=== PATIENT | female | born 1990 | race Caucasian/White ===

== ENCOUNTER 2016-06-21 23:59 | Emergency (ER) | payer OTHER ==
[2016-06-22 00:09] VITALS: BMI 22.3
[2016-06-22] MEDS ORDERED: SODIUM CHLORIDE 0.9% 1000 ML INFUS.BAG IV ONE (01:41)
[2016-06-22 02:14] LABS: BASOPHIL 0.3 % (0-2.0); EOSINOPHIL 2.3 % (0-4.5); MCH 30.4 pg (25.7-33.7); MCHC 32.8 g/dl (32.0-36.0); MEAN CELL VOLUME 92.8 fl (80-96); MEAN PLT VOLUME 7.3 fl (7.5-11.1); NEUTROPHILS 45.4 % (42.8-82.8); PLATELET COUNT 236 K/MM3 (134-434); RDW 13.8 % (11.6-15.6); WHITE BLOOD COUNT 8.2 K/mm3 (4.0-10.0)
[2016-06-22 02:36] LABS: ALBUMIN 3.6 g/dl (3.4-5.0); ANION GAP 6 (8-16); BILIRUBIN,TOTAL 0.2 mg/dL (0.2-1.0); CALCIUM 8.3 mg/dL (8.5-10.1); CO2 30 mmol/L (21-32); CREATININE 0.8 mg/dL (0.55-1.02); GLUCOSE,RANDOM 98 mg/dL (74-106); SGOT/AST 14 U/L (15-37); SGPT/ALT 16 U/L (12-78); TOT PROT 6.4 g/dl (6.4-8.2)
[2016-06-22 02:44] LABS: ALK PHOS 52 U/L (45-117); THYROID STIMULATING HORMONE 0.49 uIU/ml (0.358-3.74)
[2016-06-22 02:51] LABS: HIV 1 & 2 AB NEGATIVE; HIV 1 AGp24 NEGATIVE
--- NOTE | 2016-06-22 02:57 | PDOC ---
History of Present Illness - General Chief Complaint: Diarrhea Stated Complaint: DIZZINESS, WEAKNESS Time Seen by Provider: 06/22/16 01:18 History Source: Patient Exam Limitations: No Limitations - History of Present Illness Initial Comments: 06/22/16 02:38 Patient is a 26-year-old female with past history of chlamydial infection here with multiple complaints of not feeling well x 4 months. Symptoms include feeling weak, dizzy, decreased appetite, abd bloating, sorethorat, rectal bleeding, menorrhagia, HARPER, photophobia, diarrhea, 40 lbs weight loss, nausea, no vomiting. She is concern that she may have lupus for HIV and was suppose to go for the workup but did not due to time. She is requesting testing including HIV. PMD: Debbi Morales PMHX: as above PSocHx: (+)5-6 cig/day, etoh daily, no drugs Pfamhx: lupus aunt ALL: NKDA GENERAL/CONSTITUTIONAL: (+) fever or chills. (+) weakness. (+) weight change.] HEAD, EYES, EARS, NOSE AND THROAT: [No change in vision. No ear pain or discharge. No sore throat.] CARDIOVASCULAR: [No chest pain or shortness of breath.] RESPIRATORY: [No cough, wheezing, or hemoptysis.] GASTROINTESTINAL: (+) nausea, vomiting, diarrhea or constipation. No rectal bleeding.] GENITOURINARY: (+) dysuria, frequency, or change in urination.] MUSCULOSKELETAL: [No joint or muscle swelling or pain. No neck or back pain.] SKIN AND BREASTS: [No rash or easy bruising.] NEUROLOGIC: (+) headache, (-) vertigo, loss of consciousness, or loss of sensation.] PSYCHIATRIC: [No depression or anxiety.] ENDOCRINE: [No increased thirst. No abnormal weight change.] HEMATOLOGIC/LYMPHATIC: [No anemia, easy bleeding, or history of blood clots.] ALLERGIC/IMMUNOLOGIC: [No hives or skin allergy. No latex allergy.] GENERAL: [The patient is awake, alert, and fully oriented, in mild distress, crying] HEAD: [Normal with no signs of trauma.] EYES: [Pupils equal, round and reactive to light, extraocular movements intact, sclera anicteric, conjunctiva pallor, dark igiugig around the eyes ENT: [Ears normal, nares patent, oropharynx clear without exudates. Moist mucous membranes.] NECK: [Normal range of motion, supple without lymphadenopathy, JVD, or masses.] LUNGS: [Breath sounds equal, clear to auscultation bilaterally. No wheezes, and no crackles.] HEART: [Regular rate and rhythm, normal S1 and S2 without murmur, rub.] ABDOMEN: [Soft, (+) tender generalized tenderness, normoactive bowel sounds. No guarding, no rebound. No masses.] EXTREMITIES: [Normal range of motion, no edema. No clubbing or cyanosis. No cords, erythema, or tenderness.] NEUROLOGICAL: [Cranial nerves II through XII grossly intact. Normal speech, normal gait.] PSYCH: [Normal mood, normal affect.] SKIN: [Warm, Dry, normal turgor, no rashes or lesions noted.] Past History - Past Medical History Allergies/Adverse Reactions: Allergies Allergy/AdvReac Type Severity Reaction Status Date / Time No Known Drug Allergies Allergy Verified 06/22/16 00:09 Home Medications: Ambulatory Orders NK [No Known Home Medication] 06/22/16 Asthma: Yes Cancer: No Cardiac Disorders: No Diabetes: No HTN: No Seizures: No Thyroid Disease: No - Reproductive History (#): 0 Para: 0 Cervical CA: No Dysfunctional Uterine Bleeding: No Ectopic : No Endometrial CA: No Polycystic Ovaries: No Therapeutic (s) & number: No Tubal Ligation: No - Immunization History Immunization Up to Date: Yes - Psycho/Social/Smoking Cessation Hx Anxiety: No Suicidal Ideation: No Smoking Status: Yes Smoking History: Current every day smoker Have you smoked in the past 12 months: Yes Number of Cigarettes Smoked Daily: 8 Information on smoking cessation initiated: No 'Breaking Loose' booklet given: 12/05/14 Hx Alcohol Use: No Drug/Substance Use Hx: Yes Substance Use Type: Cocaine Hx Substance Use Treatment: Yes ([facility]) *Physical Exam - Vital Signs Last Vital Signs Temp Pulse Resp BP Pulse Ox 98.5 F 100 H 18 103/68 98 06/22/16 00:03 06/22/16 00:03 06/22/16 00:03 06/22/16 00:03 06/22/16 00:03 ED Treatment Course - LABORATORY CBC & Chemistry Diagram: 06/22/16 02:10 06/22/16 02:10 - ADDITIONAL ORDERS Additional order review: 06/22/16 02:10 RBC 4.17 MCV 92.8 MCHC 32.8 RDW 13.8 MPV 7.3 L D Neutrophils % 45.4 Lymphocytes % 42.2 H D Monocytes % 9.8 Eosinophils % 2.3 Basophils % 0.3 - Medications Given in the ED: ED Medications Discontinued Medications Generic Name Dose Route Start Last Admin Trade Name Luz PRN Reason Stop Dose Admin Sodium Chloride 1,000 ml 06/22/16 01:41 06/22/16 02:11 Normal Saline - IV 06/22/16 01:42 1,000 ml ONCE ONE Administration Medical Decision Making - Medical Decision Making 06/22/16 04:33 Patient is a 26-year-old female with past history of chlamydial infection here with multiple complaints of not feeling well x 4 months. Symptoms are nonspecific but will get labs and give IVF hydration labs reviewed no acute finding GC chlamydia and mono screen are pending and a send out. I discussed the physical exam findings, ancillary test results and final diagnoses with the patient. I answered all of the patient's questions. The patient was satisfied with the care received and felt comfortable with the discharge plan and treatment plan. The Patient agrees to follow up with the primary care physician within 24-72 hours. *DC/Admit/Observation/Transfer Diagnosis at time of Disposition: Fatigue Qualifiers: Fatigue type: unspecified Qualified Code(s): R53.83 - Other fatigue - Discharge Dispostion Disposition: HOME Condition at time of disposition: Stable - Referrals Referrals: Debbi Mathew NP [Primary Care Provider] - - Patient Instructions Printed Discharge Instructions: DI for Fatigue Additional Instructions: Your Discharge Instructions: You must call primary care physician within 24 hours to arrange follow-up. Return to the Emergency Department with any new, persistent or worsening symptoms, for fever, chills, SOB, dizziness or any other concerning changes that may occur.
[2016-06-22 04:05] LABS: URINE APPEARANCE CLEAR; URINE BILIRUBIN NEGATIVE (NEGATIVE); URINE BLOOD NEGATIVE (NEGATIVE); URINE COLOR LTYELLOW; URINE GLUCOSE (UA) NEGATIVE (NEGATIVE); URINE KETONE NEGATIVE (NEGATIVE); URINE LEUK ESTERASE NEGATIVE (NEGATIVE); URINE NITRITE NEGATIVE (NEGATIVE); URINE PROTEIN NEGATIVE (NEGATIVE); URINE UROBILINOGEN NEGATIVE E.U./dl (0.2-1.0)
[2016-06-22 05:44] VITALS: BP 106/56; PULSE 74; TEMP 98.1
== END 2016-06-22 05:45 | disposition home or self-care (01) ==
LOC: JER 23:59
DX: R53.83 Other fatigue (principal); R11.2 Nausea with vomiting, unspecified; R63.4 Abnormal weight loss; Z68.22 Body mass index [BMI] 22.0-22.9, adult; F17.210 Nicotine dependence, cigarettes, uncomplicated
CPT/HCPCS: 36415; 80053; 81003; 82272; 84443; 85025; 86308; 87045; 87046; 87324; 87389; 87449; 87491; 87591; 99283-25

== ENCOUNTER 2016-09-03 11:16 | Inpatient (IN) | payer OTHER ==
[2016-09-03 11:20] VITALS: BMI 20.9
--- NOTE | 2016-09-03 12:13 | PDOC ---
History of Present Illness - History of Present Illness Initial Comments: 09/03/16 15:30 The patient is a 26 year old female, with no significant past medical history of depression, anxiety, bipolar disorder, suicidal ideation (last attempt on ), and polysubstance abuse, who presents to the emergency department with suicidal ideations, weight-loss, weakness, dizziness, unexplained bruising, and abdominal pain today. The patient admits to being seen at [facility] 3 days ago for attempt of suicide. She states she snorted cocaine the day of her recent suicide attempt, as well as, ingesting half of a bottle of anxiety medication she had left over. She denies any illicit drug use since. She reports she cut her left arm and woke up in the ER with her hands tied to the bed. The patient states she does not have a plan today, but feels like committing suicide. She reports she has been unable to eat because of diffuse abdominal pain and nausea/vomiting. She reports her vomit feels like acid. She denies hematemesis. The patient states she attempts suicide at least twice a year since she was a young girl. She states she lost her job a year ago and has not been able to get work. She also states she just recently gave custody of her son to her parents. She states she feels like everything is wrong with her and feels very depressed. She states she has been to [facility] numerous times for her depression/anxiety and denies being seen by psychiatrist at the facility. She states she has had her own psychiatrist since she was young , however, reports she has not followed up in at least 3 or 4 months because I do not feel I need medication. She states her last PCP visit was 5 months ago[address] She reports Dr. Mathew is new to her after he usual PCP, Dr. Cedeno, retired. She denies chest pain, shortness of breath, headache. She denies fever, diarrhea and constipation. She denies dysuria, frequency, urgency and hematuria. Allergies: NKDA Social history: Admits to use of cocaine, pcp, marijuana, K2, PCP - Dr. Debbi Mathew <Vanesa Hurtado - Last Filed: 09/03/16 15:30> <Derrick Rodrigez - Last Filed: 09/05/16 07:41> - General Chief Complaint: Suicidal Stated Complaint: WEIGHT LOSS Time Seen by Provider: 09/03/16 11:30 Past History <Vanesa Hurtado - Last Filed: 09/03/16 15:30> - Past Medical History Asthma: Yes Cancer: No Cardiac Disorders: No Diabetes: No HTN: No Psychiatric Problems: Yes (DEPRESSION, ANXIETY, BIPOLAR) Seizures: No Thyroid Disease: No - Reproductive History (#): 0 Para: 0 Cervical CA: No Dysfunctional Uterine Bleeding: No Ectopic : No Endometrial CA: No Polycystic Ovaries: No Therapeutic (s) & number: No Tubal Ligation: No - Immunization History Immunization Up to Date: Yes - Psycho/Social/Smoking Cessation Hx Anxiety: Yes Suicidal Ideation: Yes Smoking Status: Yes Smoking History: Current every day smoker Have you smoked in the past 12 months: Yes Number of Cigarettes Smoked Daily: 20 Information on smoking cessation initiated: No 'Breaking Loose' booklet given: 12/05/14 Hx Alcohol Use: No Drug/Substance Use Hx: No Substance Use Type: None Hx Substance Use Treatment: Yes ([facility] 2013) <Derrick Rodrigez - Last Filed: 09/05/16 07:41> - Past Medical History Allergies/Adverse Reactions: Allergies Allergy/AdvReac Type Severity Reaction Status Date / Time No Known Drug Allergies Allergy Verified 09/03/16 11:20 Home Medications: Ambulatory Orders NK [No Known Home Medication] 06/22/16 Review of Systems - Review of Systems Able to Perform ROS?: Yes Comments:: 09/03/16 15:31 CONSTITUTIONAL: + Malaise, Loss of Appetite No reported: Fever, Chills, Diaphoresis, HEENT: No reported: Rhinorrhea, Nasal Congestion, Throat Pain, Throat Swelling, Difficulty Swallowing, Mouth Swelling, Ear Pain, Eye Pain, Visual Changes CARDIOVASCULAR: No reported: Chest Pain, Syncope, Palpitations, Irregular Heart Rate, Lightheadedness, Peripheral Edema RESPIRATORY: No reported: Cough, Shortness of Breath, SOB with Exertion, Orthopnea, Wheezing , Stridor, Hemoptysis GASTROINTESTINAL: +Nausea, No reported: Abdominal pain, Abdominal Distension, Vomiting, Diarrhea, Constipation, Melena, Hematochezia GENITOURINARY: No reported: Dysuria, Frequency, Urgency, Hesitancy, Flank Pain, Genital Pain MUSCULOSKELETAL: No reported: Myalgia, Arthralgia, Joint Swelling, Back pain, Neck Pain SKIN: No reported: Rash, Itching, Pallor HEMEATOLOGIC/IMMUNOLOGIC: No reported: Easy Bleeding, Easy Bruising, Lymphadenopathy, Frequent infections ENDOCRINE: No reported: Unexplained Weight Gain, Unexplained Weight Loss, Heat Intolerance , Cold Intolerance NEUROLOGIC: No reported: Headache, Focal Weakness, Paresthesias, Vertigo, Lightheadedness, Unsteady Gait, Seizure, Mental Status Changes, Incontinence PSYCHIATRIC: No reported: Anxiety, Depression <Vanesa Hurtado - Last Filed: 09/03/16 15:30> *Physical Exam - Vital Signs Last Vital Signs Temp Pulse Resp BP Pulse Ox 97.7 F 75 20 136/89 100 09/03/16 11:16 09/03/16 11:16 09/03/16 11:16 09/03/16 11:16 09/03/16 11:39 - Physical Exam Comments: 09/03/16 15:31 GENERAL: The patient is moderate distress, tearful at bedside. Awake, alert, and fully oriented, Nontoxic. HEAD: Normocephalic, atraumatic. EYES: extraocular movements intact, sclera anicteric, conjunctiva clear. ENT: Normal voice, Moist mucous membranes. NECK: Normal range of motion, supple LUNGS: Breath sounds equal, clear to auscultation bilaterally. No wheezes, no rhonchi, no rales. HEART: Regular rate and rhythm, without murmur, rub or gallop. ABDOMEN: Soft, nontender, normoactive bowel sounds. No guarding, no rebound.No CVA tenderness EXTREMITIES: Normal range of motion, no edema. No clubbing or cyanosis. No cords, erythema, or tenderness. NEUROLOGICAL: No facial assymetry, Normal speech, PSYCH: Normal mood, tearful affect SKIN: (+) multiple , nonindurated, ecchymosis of different stages to her bilateral lower extremities Warm, Dry, normal turgor, multiple superficial abrasions on L wrist without bleeding <Vanesa Hurtado - Last Filed: 09/03/16 15:30> - Vital Signs Last Vital Signs Temp Pulse Resp BP Pulse Ox 97.7 F 75 20 136/89 100 09/03/16 11:16 09/03/16 11:16 09/03/16 11:16 09/03/16 11:16 09/03/16 11:16 <Derrick Rodrigez - Last Filed: 09/05/16 07:41> Heart Score/ECG Review - ECG Impressions Comment:: 09/03/16 14:24 Twelve-lead EKG was performed and reviewed by me. There is normal sinus rhythm with a rate of 57 The axis is normal. The intervals are normal. There is normal R wave progression There are no ST or T wave abnormalities. Impression: sinus bradycardia <Derrick Rodrigez - Last Filed: 09/05/16 07:41> ED Treatment Course - LABORATORY CBC & Chemistry Diagram: 09/03/16 12:29 09/03/16 12:29 - ADDITIONAL ORDERS Additional order review: Laboratory Results 09/03/16 09/03/16 09/03/16 12:29 12:29 12:29 INR 1.19 H Sodium Potassium Chloride Carbon Dioxide Anion Gap BUN Creatinine Creat Clearance w eGFR Random Glucose Calcium Total Bilirubin AST ALT Alkaline Phosphatase Total Protein Albumin TSH Cancelled Serum , Qual Negative 09/03/16 12:29 INR Sodium 140 Potassium 3.8 Chloride 103 Carbon Dioxide 29 Anion Gap 8 BUN 15 D Creatinine 0.9 Creat Clearance w eGFR > 60 Random Glucose 80 Calcium 9.5 Total Bilirubin 0.4 D AST 21 D ALT 20 D Alkaline Phosphatase 63 D Total Protein 7.4 Albumin 4.0 TSH 0.34 L D Serum , Qual 09/03/16 12:29 RBC 4.52 MCV 93.5 MCHC 34.1 RDW 13.7 MPV 7.4 L Neutrophils % 50.1 Lymphocytes % 38.4 Monocytes % 9.5 Eosinophils % 1.5 Basophils % 0.5 <Vanesa Hurtado - Last Filed: 09/03/16 15:30> - LABORATORY CBC & Chemistry Diagram: 09/03/16 12:29 09/03/16 12:29 <Derrick Rodrigez - Last Filed: 09/05/16 07:41> Medical Decision Making - Medical Decision Making 09/03/16 14:00 PsychiatristFadi boo NP, was called and the patient's case was discussed. He has agreed to come to the ED to evaluate the patient in person at his earliest convenience today. <Vanesa Hurtado - Last Filed: 09/03/16 15:30> - Medical Decision Making 09/03/16 12:11 26y F hx of depression/anxiety with hx of SI presents with complaings of generalized weakness, nausea, dizziness, weight loss, decreased appetite over the psat month, notes that she has beeen going through many stressors recently, 3 days ago attempted suicide by cutting, notes she also took half a bottle of sedataives, was evaluated at [facility] and was discharged, presents for the same complaint. denies any ingestion or further attempts today. will obtain blood work to r/o coningestants, metabolic dernagements, anemia, thyroid disease as organic cause of her sypmtoms pt on 1:1 will consult psych 09/03/16 13:43 A portion of this note was documented by scribe services under my direction. I have reviewed the details of the note, within reason, and agree with the documentation with the following case summary and management plan written by me 09/03/16 17:13 case signed out to dr. Sarabia to fu psych and disposition the pt pt currently resting comfortably in stretcher on 1:1 <Derrick Rodrigez - Last Filed: 09/05/16 07:41> *DC/Admit/Observation/Transfer - Attestations Scribe Attestion: 09/03/16 15:31 Documentation prepared by Vanesa Hurtado, acting as medical fee clerk for Derrick Rodrigez MD <Vanesa Hurtado - Last Filed: 09/03/16 15:30> <Derrick Rodrigez - Last Filed: 09/05/16 07:41> Diagnosis at time of Disposition: Suicidal behavior with attempted self-injury - Discharge Dispostion Condition at time of disposition: Stable
[2016-09-03 13:02] LABS: BASOPHIL 0.5 % (0-2.0); EOSINOPHIL 1.5 % (0-4.5); MCH 31.9 pg (25.7-33.7); MCHC 34.1 g/dl (32.0-36.0); MEAN CELL VOLUME 93.5 fl (80-96); MEAN PLT VOLUME 7.4 fl (7.5-11.1); NEUTROPHILS 50.1 % (42.8-82.8); PLATELET COUNT 229 K/MM3 (134-434); RDW 13.7 % (11.6-15.6); WHITE BLOOD COUNT 6.3 K/mm3 (4.0-10.0)
[2016-09-03 13:21] LABS: ANION GAP 8 (8-16); BILIRUBIN,TOTAL 0.4 mg/dL (0.2-1.0); CALCIUM 9.5 mg/dL (8.5-10.1); CO2 29 mmol/L (21-32); CREATININE 0.9 mg/dL (0.55-1.02); GLUCOSE,RANDOM 80 mg/dL (74-106); SGOT/AST 21 U/L (15-37); SGPT/ALT 20 U/L (12-78); TOT PROT 7.4 g/dl (6.4-8.2)
[2016-09-03 13:22] LABS: INR 1.19 (0.82-1.09); PROTHROMBIN TIME (PATIENT) 13.1 SEC (9.98-11.88)
[2016-09-03 13:32] LABS: ALK PHOS 63 U/L (45-117); THYROID STIMULATING HORMONE 0.34 uIU/ml (0.358-3.74)
--- NOTE | 2016-09-03 14:47 | EKG ---
Test Reason : Blood Pressure : / mmHG Vent. Rate : 057 BPM Atrial Rate : 057 BPM P-R Int : 140 ms QRS Dur : 074 ms QT Int : 484 ms P-R-T Axes : -16 067 047 degrees QTc Int : 471 ms SINUS BRADYCARDIA OTHERWISE NORMAL ECG WHEN COMPARED WITH ECG OF 11-NOV-2010 12:44, NO SIGNIFICANT CHANGE WAS FOUND Confirmed by LUAN LI MD ([id number]) on 09/03/2016 2:46:50 PM Referred By: Confirmed By:LUAN LI MD
[2016-09-03 14:56] LABS: URINE APPEARANCE CLEAR; URINE BILIRUBIN NEGATIVE (NEGATIVE); URINE BLOOD NEGATIVE (NEGATIVE); URINE COLOR YELLOW; URINE GLUCOSE (UA) NEGATIVE (NEGATIVE); URINE KETONE 2+ (NEGATIVE); URINE LEUK ESTERASE NEGATIVE (NEGATIVE); URINE NITRITE NEGATIVE (NEGATIVE)
[2016-09-03 14:57] LABS: URINE PROTEIN 1+ (NEGATIVE)
[2016-09-03 14:58] LABS: URINE MUCUS MANY; URINE RBC 2 /hpf (0-3); URINE WBC 2 /hpf (3-5)
[2016-09-03 15:21] LABS: URINE MARIJUANA THC POSITIVE ng/ml (CUTOFF=50)
--- NOTE | 2016-09-03 19:07 | PN ---
Mental Health Exam - Mental Status Exam Alert and Oriented to: Place, Person Cognitive Function: Grossly Intact Patient Appearance: Unkempt, Disheveled, Bizarre (deep in side my body is failing, i may have cancer. ) Mood: Depressed, Fearful, Sad, Nervous, Anxious, Apprehensive Affect: Mood Congruent Patient Behavior: Crying, Impulsive, Cooperative Speech Pattern: Rambling, Perseverating, Tangential Voice Loudness: Mildly Soft/Quiet Thought Process: Circumstantial, Disorganized Thought Disorder: Delusional ("my body is falling apart") Hallucinations: Denies Suicidal Ideation: Current ("i just want to , My life is hopeless" ), Past ( Took OD of antidepressant 3 days ago, Slashed wrists yesterday, ), No Plan Homicidal Ideation: None, Denies Insight/Judgement: Impaired Sleep: Poorly, Difficulty falling asleep Appetite: Poor, Weight loss Muscle strength/Tone: Mild Hypertonicity Gait/Station: Deferred
--- NOTE | 2016-09-03 19:13 | PN ---
Progress Note, Physician Chief Complaint: My body is weak, sick, nerves are bad, I feel miserable, I want to " History of Present Illness: Client has a past history since 15 yo od admitted to [address] [place] [id number]. Client stopped taking her antidepressant Lexapro some months ago. In past also treated with seroquel and zoloft. Denies having any homicidal ideation, lives alone, cut off from parents wh have temp custody of her 3 yo daughter. Client has 3 superficial cuts on arm, No caegiver at home. Client has history of smokinhg dust last time 3 weeks ago. Last use COKE of unknowbn amount. - Objective Vital Signs: Vital Signs Temperature 98.9 F 09/03/16 16:16 Pulse Rate 77 09/03/16 16:16 Respiratory Rate 16 09/03/16 16:16 Blood Pressure 109/71 09/03/16 16:16 O2 Sat by Pulse Oximetry (%) 98 09/03/16 16:16 Labs: CBC, BMP 09/03/16 12:29 09/03/16 12:29 INR, PTT INR 1.19 (0.82-1.09) H 09/03/16 12:29 Problem List - Problems (1) Suicidal behavior with attempted self-injury Code(s): T14.91 - SUICIDE ATTEMPT (2) Major depression Code(s): F32.9 - MAJOR DEPRESSIVE DISORDER, SINGLE EPISODE, UNSPECIFIED Qualifiers: Major depression recurrence: recurrent Active/Remission status: currently active Major depression episode severity: severe Psychotic features: with psychotic features Qualified Code(s): F33.3 - Major depressive disorder, recurrent, severe with psychotic symptoms Assessment/Plan Admit involuntary to Psychiatric inpatient for safety and stabilization of depression, Recommend Rehab. Client in period where she acknowledge that she will change her course of life. Client has fixed ideation that the everybody wanted her , and that she is convinced that her bod is wasting due to cancer. Restart SSRI, Celexa 10mg daily. May have Vistoral 50mg for anxiety or po prn ativan 1mg. If agitated give with haldol 5mg,
--- NOTE | 2016-09-03 19:51 | PDOC ---
*Physical Exam - Vital Signs Last Vital Signs Temp Pulse Resp BP Pulse Ox 98.9 F 77 16 109/71 98 09/03/16 16:16 09/03/16 16:16 09/03/16 16:16 09/03/16 16:16 09/03/16 16:16 - Physical Exam Comments: 09/03/16 19:50 Patient seen and evaluated by LINDA Montilla of psychiatry. He recommends inpatient admission for depression and suicidal ideations. Will consult case management for placement. We'll administer Ativan as needed for anxiety/agitation. 09/03/16 21:10 Patient complaining of intermittent chest pain. Will obtain EKG. 09/04/16 00:45 EKG shows normal sinus at 76, axis within normal limit, no ST-T abnormalities, negative voltage criteria for LVH, normal EKG. ED Treatment Course - LABORATORY CBC & Chemistry Diagram: 09/05/16 06:05 09/05/16 06:05 - ADDITIONAL ORDERS Additional order review: Laboratory Results 09/03/16 09/03/16 09/03/16 14:56 13:04 12:29 INR Sodium Potassium Chloride Carbon Dioxide Anion Gap BUN Creatinine Creat Clearance w eGFR Random Glucose Calcium Total Bilirubin AST ALT Alkaline Phosphatase Total Protein Albumin TSH Cancelled Serum , Qual Urine Color Urine Appearance Urine pH Ur Specific [place] Urine Protein Urine Glucose (UA) Urine Ketones Urine Blood Urine Nitrite Urine Bilirubin Urine Urobilinogen Ur Leukocyte Esterase Urine RBC Urine WBC Ur Epithelial Cells Urine Mucus Salicylates < 4.0 Opiates Screen Negative Methadone Screen Negative Acetaminophen Barbiturate Screen Negative Phencyclidine Screen Positive Ur Amphetamines Screen Negative MDMA (Ecstasy) Screen Negative Benzodiazepines Screen Negative Cocaine Screen Positive U Marijuana (THC) Screen Positive 09/03/16 09/03/16 09/03/16 12:29 12:29 12:29 INR 1.19 H Sodium Potassium Chloride Carbon Dioxide Anion Gap BUN Creatinine Creat Clearance w eGFR Random Glucose Calcium Total Bilirubin AST ALT Alkaline Phosphatase Total Protein Albumin TSH Serum , Qual Negative Urine Color Yellow Urine Appearance Clear Urine pH 6.0 Ur Specific [place] 1.025 Urine Protein 1+ H Urine Glucose (UA) Negative Urine Ketones 2+ H Urine Blood Negative Urine Nitrite Negative Urine Bilirubin Negative Urine Urobilinogen 2.0 H Ur Leukocyte Esterase Negative Urine RBC 2 Urine WBC 2 Ur Epithelial Cells Few Urine Mucus Many Salicylates Opiates Screen Methadone Screen Acetaminophen < 2 L Barbiturate Screen Phencyclidine Screen Ur Amphetamines Screen MDMA (Ecstasy) Screen Benzodiazepines Screen Cocaine Screen U Marijuana (THC) Screen 09/03/16 12:29 INR Sodium 140 Potassium 3.8 Chloride 103 Carbon Dioxide 29 Anion Gap 8 BUN 15 D Creatinine 0.9 Creat Clearance w eGFR > 60 Random Glucose 80 Calcium 9.5 Total Bilirubin 0.4 D AST 21 D ALT 20 D Alkaline Phosphatase 63 D Total Protein 7.4 Albumin 4.0 TSH 0.34 L D Serum , Qual Urine Color Urine Appearance Urine pH Ur Specific [place] Urine Protein Urine Glucose (UA) Urine Ketones Urine Blood Urine Nitrite Urine Bilirubin Urine Urobilinogen Ur Leukocyte Esterase Urine RBC Urine WBC Ur Epithelial Cells Urine Mucus Salicylates Opiates Screen Methadone Screen Acetaminophen Barbiturate Screen Phencyclidine Screen Ur Amphetamines Screen MDMA (Ecstasy) Screen Benzodiazepines Screen Cocaine Screen U Marijuana (THC) Screen 09/03/16 12:29 RBC 4.52 MCV 93.5 MCHC 34.1 RDW 13.7 MPV 7.4 L Neutrophils % 50.1 Lymphocytes % 38.4 Monocytes % 9.5 Eosinophils % 1.5 Basophils % 0.5 *DC/Admit/Observation/Transfer Diagnosis at time of Disposition: Suicidal behavior with attempted self-injury, Dehydration - Discharge Dispostion Disposition: HOME Condition at time of disposition: Good - Prescriptions
[2016-09-03] MEDS ORDERED: ACETAMINOPHEN 325 MG TABLET (FP) PO ONE (21:37)
[2016-09-03] MEDS ORDERED: ACETAMINOPHEN 325 MG TABLET (FP) ONE (22:05)
[2016-09-04] MEDS ORDERED: HALOPERIDOL LACTATE 5 MG/ML IM ONE (10:57)
[2016-09-04] MEDS ORDERED: MIDAZOLAM HCL 5 MG/1 ML Single Dose Vial IM ONE (10:57)
[2016-09-04] MEDS ORDERED: MIDAZOLAM HCL 2 MG/2 ML SINGLE DOSE VIAL ONE (10:59)
[2016-09-04] MEDS ORDERED: HALOPERIDOL LACTATE 5 MG/ML ONE (14:11)
--- NOTE | 2016-09-04 14:18 | PDOC ---
*Physical Exam - Vital Signs Last Vital Signs Temp Pulse Resp BP Pulse Ox 98.0 F 63 18 126/78 98 09/03/16 21:54 09/03/16 21:54 09/03/16 21:54 09/03/16 21:54 09/03/16 21:54 ED Treatment Course - LABORATORY CBC & Chemistry Diagram: 09/05/16 06:05 09/05/16 06:05 - ADDITIONAL ORDERS Additional order review: 09/03/16 12:29 RBC 4.52 MCV 93.5 MCHC 34.1 RDW 13.7 MPV 7.4 L Neutrophils % 50.1 Lymphocytes % 38.4 Monocytes % 9.5 Eosinophils % 1.5 Basophils % 0.5 - Medications Given in the ED: ED Medications Discontinued Medications Generic Name Dose Route Start Last Admin Trade Name Freq PRN Reason Stop Dose Admin Acetaminophen 650 mg 09/03/16 21:37 09/03/16 22:07 Tylenol - PO 09/03/16 21:38 Not Given ONCE ONE Medical Decision Making - Medical Decision Making 09/04/16 14:04 This is a 26 yo F with a history of bipolar, depression and anxiety The patient was waiting in the ER for transfer to psych facility None available Pt crying, agitated Call placed to Psych They still believe she needs to be transferred Pt has now been in the ER for 26 hours She will 09/04/16 14:[address] Weaver Will admit to med surg *DC/Admit/Observation/Transfer Diagnosis at time of Disposition: Suicidal behavior with attempted self-injury, Dehydration - Discharge Dispostion Condition at time of disposition: Stable Admit: Yes
--- NOTE | 2016-09-04 16:32 | EKG ---
Test Reason : Blood Pressure : / mmHG Vent. Rate : 076 BPM Atrial Rate : 076 BPM P-R Int : 138 ms QRS Dur : 072 ms QT Int : 398 ms P-R-T Axes : -09 071 061 degrees QTc Int : 447 ms NORMAL SINUS RHYTHM NORMAL ECG WHEN COMPARED WITH ECG OF 03-SEP-2016 12:54, NO SIGNIFICANT CHANGE WAS FOUND Confirmed by KARMA CERVANTES MD ([id number]) on 09/04/2016 4:32:13 PM Referred By: Confirmed By:KARMA CERVANTES MD
--- NOTE | 2016-09-04 18:43 | PN ---
Mental Health Exam - Mental Status Exam Alert and Oriented to: Time, Place, Person Cognitive Function: Grossly Intact Patient Appearance: Disheveled Mood: Apathetic, Nervous, Anxious Affect: Labile Patient Behavior: Dependent, Passive, Fearful, Talkative Speech Pattern: Clear Voice Loudness: Mildly Soft/Quiet Thought Process: Goal Oriented ("all i need is a job" "i will take talk therapy: ") Thought Disorder: Not Present Hallucinations: None Suicidal Ideation: Denies, Past, No Plan Homicidal Ideation: None Insight/Judgement: Fair Sleep: Difficulty falling asleep Appetite: Fair Muscle strength/Tone: Normal Gait/Station: Normal
--- NOTE | 2016-09-04 18:49 | PN ---
Progress Note (short form) - Note Progress Note: Patient initially seen in [facility] 2 days ago with Suicidal ideation, currently denies such without a plan. On nursing floor in 608 with a Constant observation staff. Client stated "all i need is a job and talk therapy". Stated that her father called her and is now willing to help also. She wantys to live for her 3 yo son "my baby". She is requesting discharge. Recommend follow up at [facility] on out patient setting. Recommend Substance use consult. Change DX to adjustment disorder. Nicotine 21mg a day for withrawl. Spoke with MILADY Goode. Problem List - Problems (1) Suicidal behavior with attempted self-injury Code(s): T14.91 - SUICIDE ATTEMPT (2) Major depression Code(s): F32.9 - MAJOR DEPRESSIVE DISORDER, SINGLE EPISODE, UNSPECIFIED Qualifiers: Major depression recurrence: recurrent Active/Remission status: currently active Major depression episode severity: mild Qualified Code(s): F33.0 - Major depressive disorder, recurrent, mild (3) Adjustment disorder with anxiety Code(s): F43.22 - ADJUSTMENT DISORDER WITH ANXIETY (4) Substance abuse Code(s): F19.10 - OTHER PSYCHOACTIVE SUBSTANCE ABUSE, UNCOMPLICATED (5) Nicotine addiction Code(s): F17.200 - NICOTINE DEPENDENCE, UNSPECIFIED, UNCOMPLICATED Qualifiers : Nicotine product type: cigarettes Substance use status: in withdrawal Qualified Code(s): F17.213 - Nicotine dependence, cigarettes, with withdrawal
[2016-09-04] MEDS: IBUPROFEN 400 MG TABLET (FP) PO PRN (23:40)
[2016-09-05 07:54] LABS: BASOPHIL 0.4 % (0-2.0); EOSINOPHIL 3.2 % (0-4.5); MCH 31.4 pg (25.7-33.7); MCHC 33.7 g/dl (32.0-36.0); MEAN CELL VOLUME 93.3 fl (80-96); MEAN PLT VOLUME 7.2 fl (7.5-11.1); PLATELET COUNT 221 K/MM3 (134-434); RDW 13.6 % (11.6-15.6); WHITE BLOOD COUNT 6.4 K/mm3 (4.0-10.0)
[2016-09-05 08:23] LABS: ALBUMIN 3.5 g/dl (3.4-5.0); ALK PHOS 58 U/L (45-117); ANION GAP 9 (8-16); BILIRUBIN,TOTAL 0.6 mg/dL (0.2-1.0); CALCIUM 9.1 mg/dL (8.5-10.1); CO2 27 mmol/L (21-32); CREATININE 0.8 mg/dL (0.55-1.02); GLUCOSE,RANDOM 80 mg/dL (74-106); SGOT/AST 14 U/L (15-37); SGPT/ALT 16 U/L (12-78); TOT PROT 6.7 g/dl (6.4-8.2)
[2016-09-05] MEDS ORDERED: NICOTINE 21 MG/24 HOURS TOPICAL PATCH TD SCH (10:00)
[2016-09-05] MEDS: IBUPROFEN 400 MG TABLET (FP) PO PRN (10:08)
--- NOTE | 2016-09-05 11:20 | HP ---
Admitting History and Physical - Past Medical History ...LMP: 09/05/11 - Smoking History Smoking history: Current every day smoker Have you smoked in the past 12 months: Yes Aproximately how many cigarettes per day: 20 - Alcohol/Substance Use Hx Alcohol Use: No Home Medications - Allergies Allergies/Adverse Reactions: Allergies Allergy/AdvReac Type Severity Reaction Status Date / Time No Known Drug Allergies Allergy Verified 09/03/16 11:20 - Home Medications Home Medications: Ambulatory Orders NK [No Known Home Medication] 06/22/16 Physical Examination Vital Signs: Vital Signs Temperature 97.9 F 09/05/16 05:27 Pulse Rate 56 L 09/05/16 05:27 Respiratory Rate 18 09/05/16 05:27 Blood Pressure 100/64 09/05/16 05:27 O2 Sat by Pulse Oximetry (%) 100 09/04/16 21:00 Labs: CBC, BMP 09/05/16 06:05 09/05/16 06:05
[2016-09-05] MEDS ORDERED: POTASSIUM CHLORIDE TABS 20 MEQ TABLET.ER (FP) PO ONE (12:45)
[2016-09-05 13:09] VITALS: BP 118/74
[2016-09-05] MEDS ORDERED: DULoxetine HCL 30 MG CAPSULE.DR (FP) PO SCH (13:30)
[2016-09-05 13:52] VITALS: PULSE 70; TEMP 97.9
== END 2016-09-05 18:50 | disposition home or self-care (01) | DRG 351 ==
LOC: JER 11:16 → JERBED 09-04 14:18 → J6S 09-04 16:22
PROVIDERS: ADMIT Internal Medicine; ATTEND Internal Medicine
DX: T14.91 Suicide attempt (principal); F31.89 Other bipolar disorder; F41.8 Other specified anxiety disorders; F19.10 Other psychoactive substance abuse, uncomplicated; R63.4 Abnormal weight loss; Z68.20 Body mass index [BMI] 20.0-20.9, adult; J45.909 Unspecified asthma, uncomplicated; X78.8XXA Intentional self-harm by other sharp object, initial encounter; Y92.098 Other place in other non-institutional residence as the place of occurrence of the external cause; E86.0 Dehydration; F43.22 Adjustment disorder with anxiety; F17.200 Nicotine dependence, unspecified, uncomplicated
CPT/HCPCS: 36415; 80053; 80307; 81003; 81015; 84439; 84443; 84480; 84703; 85025; 85610; 93005; 93010; 99285-25

== ENCOUNTER 2018-01-25 16:01 | Emergency (ER) | payer OTHER ==
--- NOTE | 2018-01-25 16:16 | PDOC ---
Rapid Medical Evaluation Time Seen by Provider: 01/25/18 16:15 Medical Evaluation: Allergies Allergy/AdvReac Type Severity Reaction Status Date / Time No Known Drug Allergies Allergy Verified 09/03/16 11:20 01/25/18 16:15 I have performed a brief in-person evaluation of this patient. The patient presents with a chief complaint of: Fall several days ago w/ R chest wall and RUE pain and bruising. Also c/o uri sxs Pertinent physical exam findings:bruising to upper R arm and R flank I have ordered the following: rib series/cxr/upreg The patient will proceed to the ED for further evaluation 01/25/18 16:19 Discharge Disposition - Diagnosis Chest wall injury Qualifiers: Encounter type: initial encounter Qualified Code(s): S29.9XXA - Unspecified injury of thorax, initial encounter - Referrals - Patient Instructions - Post Discharge Activity
[2018-01-25 16:18] VITALS: BP 106/61; PULSE 77; TEMP 99; BMI 23.9
[2018-01-25] MEDS ORDERED: IBUPROFEN 600 MG TABLET (FP) PO ONE ×2 (16:58→17:04)
--- NOTE | 2018-01-25 17:24 | PDOC ---
History of Present Illness - General Chief Complaint: Injury Stated Complaint: INJURY, COLD SYMPTOMS Time Seen by Provider: 01/25/18 16:15 History Source: Patient Exam Limitations: No Limitations - History of Present Illness Initial Comments: 01/25/18 17:19 27 yr female states she slipped and fell down steps 3 days ago injured her left upper arm and her left flank area no head trauma or LOC. pt also c/o cough and sinus congestion. no diff breathing no fever or SOB Severity: reports: mild Past History - Past Medical History Allergies/Adverse Reactions: Allergies Allergy/AdvReac Type Severity Reaction Status Date / Time No Known Drug Allergies Allergy Verified 01/25/18 16:29 Home Medications: Ambulatory Orders Duloxetine HCl [Cymbalta] 30 mg PO DAILY #30 capsule. 09/05/16 Asthma: Yes Cancer: No Cardiac Disorders: No COPD: No Diabetes: No HTN: No Psychiatric Problems: Yes (DEPRESSION, ANXIETY, BIPOLAR) Seizures: No Thyroid Disease: No - Surgical History Cardiac Surgery: No Gastric Stapling: No Lung Surgery: No - Reproductive History (#): 0 Para: 0 Cervical CA: No Dysfunctional Uterine Bleeding: No Ectopic : No Endometrial CA: No Polycystic Ovaries: No Therapeutic (s) & number: No Tubal Ligation: No - Immunization History Immunization Up to Date: Yes - Suicide/Smoking/Psychosocial Hx Smoking Status: Yes Smoking History: Current some day smoker Have you smoked in the past 12 months: No Number of Cigarettes Smoked Daily: 20 Information on smoking cessation initiated: No 'Breaking Loose' booklet given: 12/05/14 Hx Alcohol Use: No Drug/Substance Use Hx: No Substance Use Type: None Hx Substance Use Treatment: Yes ([facility] 2013) Trauma Specific PMHX - Complaint Specific PMHX Back Injury: No Neck Injury: No Review of Systems - Review of Systems Able to Perform ROS?: Yes Is the patient limited [place] proficient: No HEENTM: Yes: Symptoms Reported Respiratory: Yes: Cough Musculoskeletal: Yes: Symptoms Reported *Physical Exam - Vital Signs Last Vital Signs Temp Pulse Resp BP Pulse Ox 99.0 F 77 16 106/61 99 01/25/18 16:15 01/25/18 16:15 01/25/18 16:15 01/25/18 16:15 01/25/18 16:15 - Physical Exam General Appearance: Yes: Nourished, Appropriately Dressed HEENT: positive: EOMI, CLARK, Nasal Congestion Neck: positive: Supple. negative: Tender, Lymphadenopathy (R), Lymphadenopathy (L), Tender lateral Respiratory/Chest: positive: Lungs Clear, Normal Breath Sounds. negative: Chest Tender Cardiovascular: positive: Regular Rhythm, Regular Rate Gastrointestinal/Abdominal: positive: Normal Bowel Sounds, Soft Musculoskeletal: positive: Normal Inspection. negative: CVA Tenderness, CVA Tenderness (R), CVA Tenderness (L), Decreased Range of Motion, Vertebral Tenderness Extremity: positive: Normal Capillary Refill, Normal Inspection, Normal Range of Motion Integumentary: positive: Normal Color, Dry, Warm, Ecchymosis (right upper arm, right ribs) Neurologic: positive: Fully Oriented, Alert, Normal Mood/Affect, Normal Response , Motor Strength 5/5 Moderate Sedation - Procedure Monitoring Vital Signs: Procedure Monitoring Vital Signs Temperature 99.0 F 01/25/18 16:15 Pulse Rate 77 01/25/18 16:15 Respiratory Rate 16 01/25/18 16:15 Blood Pressure 106/61 01/25/18 16:15 O2 Sat by Pulse Oximetry (%) 99 01/25/18 16:15 ED Treatment Course - ADDITIONAL ORDERS Additional order review: Laboratory Results 01/25/18 16:30 Urine HCG, Qual Negative - Medications Given in the ED: ED Medications Discontinued Medications Generic Name Dose Route Start Last Admin Trade Name Freq PRN Reason Stop Dose Admin Ibuprofen 600 mg 01/25/18 16:58 01/25/18 17:12 Motrin - PO 01/25/18 16:59 600 mg ONCE ONE Administration Medical Decision Making - Medical Decision Making 01/25/18 17:20 cc: trip and fall injured right upper arm and right flank/rib area no LOC no diff breathing or speaking sinus congestion lungs CTA will give motrin now for pain *DC/Admit/Observation/Transfer Diagnosis at time of Disposition: Sinus congestion Chest wall injury Qualifiers: Encounter type: initial encounter Qualified Code(s): S29.9XXA - Unspecified injury of thorax, initial encounter Contusion, arm, upper Qualifiers: Encounter type: initial encounter Laterality: right Qualified Code(s): S40.021A - Contusion of right upper arm, initial encounter - Discharge Dispostion Disposition: HOME Condition at time of disposition: Good - Referrals Referrals: Leroy Fonseca MD [Staff Physician] - - Patient Instructions Additional Instructions: take ibuprofen every 8hrs for pain apply warm compresses to the area of bruising every 3hrs for 20 minutes take sudafed cold and sinus for cold symptoms follow with your doctor for any worsening symptoms or with the orthopedist if the pain in your arm worsens or continues - Post Discharge Activity
== END 2018-01-25 17:51 | disposition home or self-care (01) ==
LOC: JERFT 16:01
DX: F41.8 Other specified anxiety disorders (principal); F31.9 Bipolar disorder, unspecified; J45.909 Unspecified asthma, uncomplicated; F17.210 Nicotine dependence, cigarettes, uncomplicated
CPT/HCPCS: 71046-TC-FY; 71111-TC-FY; 84703; 99281-25

== ENCOUNTER 2020-02-08 11:48 | Emergency (ER) | payer OTHER ==
[2020-02-08 11:57] VITALS: BMI 840.7
[2020-02-08] MEDS ORDERED: SODIUM CHLORIDE 0.9% 500 ML INFUS.BAG IV ONE ×2 (12:32→14:10)
[2020-02-08 13:11] LABS: BASO % 0.6 % (0-2.0); EOS % 1.2 % (0-4.5); HEMATOCRIT 41.6 % (32.4-45.2); HEMOGLOBIN 13.9 GM/dL (10.7-15.3); MCH 31.4 pg (25.7-33.7); MCHC 33.3 g/dl (32.0-36.0); MEAN CELL VOLUME 94.1 fl (80-96); MEAN PLT VOLUME 7.8 fl (7.5-11.1); MONO % 9.7 % (3.8-10.2); NEUT % 58.5 % (42.8-82.8); PLATELET COUNT 268 K/MM3 (134-434); RBC 4.42 M/mm3 (3.60-5.2); RDW 13.7 % (11.6-15.6); WHITE BLOOD COUNT 7.7 K/mm3 (4.0-10.0)
[2020-02-08 13:13] LABS: PH,URINE >= 9.0 (5.0-8.0); URINE APPEARANCE CLEAR; URINE BILIRUBIN NEGATIVE (NEGATIVE); URINE COLOR YELLOW; URINE GLUCOSE (UA) NEGATIVE (NEGATIVE); URINE KETONE NEGATIVE (NEGATIVE); URINE LEUK ESTERASE NEGATIVE (NEGATIVE); URINE NITRITE NEGATIVE (NEGATIVE); URINE PROTEIN TRACE (NEGATIVE)
[2020-02-08 13:31] LABS: POTASSIUM 4.1 mmol/L (3.5-5.1)
[2020-02-08 13:33] LABS: ALBUMIN 3.9 g/dl (3.4-5.0); BLOOD UREA NITROGEN 12.6 mg/dL (7-18); CALCIUM 9.2 mg/dL (8.5-10.1)
[2020-02-08 13:37] LABS: CREATININE 0.8 mg/dL (0.55-1.3)
[2020-02-08 13:38] LABS: BILIRUBIN,TOTAL 0.5 mg/dL (0.2-1); TOT PROT 7.4 g/dl (6.4-8.2)
[2020-02-08] MEDS ORDERED: ACETAMINOPHEN 500 MG TABLET (FP) PO ONE (14:10)
[2020-02-08] MEDS ORDERED: ACETAMINOPHEN INJECTION 100 ML IVPB ONE (14:15)
[2020-02-08 16:23] VITALS: BP 128/67; PULSE 76; TEMP 98.1
== END 2020-02-08 16:30 | disposition home or self-care (01) ==
LOC: JER 11:48
DX: O26.891 Other specified pregnancy related conditions, first trimester (principal)
CPT/HCPCS: 36415; 76817-TC; 80053; 81003; 84702; 85025; 86850; 86900; 86901; 87086; 99284-25

== ENCOUNTER 2020-03-10 10:30 | Emergency (ER) | payer OTHER ==
[2020-03-10 10:35] VITALS: BP 104/41; PULSE 79; TEMP 98.4; BMI 28.3
[2020-03-10] MEDS ORDERED: ACETAMINOPHEN 325 MG TABLET (FP) ONE (10:50)
[2020-03-10] MEDS ORDERED: ACETAMINOPHEN 500 MG TABLET (FP) PO ONE (10:56)
== END 2020-03-10 11:20 | disposition home or self-care (01) ==
LOC: JERFT 10:30
DX: S83.92XA Sprain of unspecified site of left knee, initial encounter (principal)
CPT/HCPCS: 99283-25

== ENCOUNTER 2020-03-24 09:07 | Emergency (ER) | payer OTHER ==
[2020-03-24 09:36] VITALS: BP 105/57; PULSE 74; TEMP 98.5; BMI 26.5
[2020-03-24 10:37] LABS: BASO % 0.4 % (0-2.0); EOS % 2.6 % (0-4.5); HEMATOCRIT 37.3 % (32.4-45.2); HEMOGLOBIN 12.7 GM/dL (10.7-15.3); LYMPH % 33.7 % (8-40); MCH 31.7 pg (25.7-33.7); MCHC 33.9 g/dl (32.0-36.0); MEAN CELL VOLUME 93.3 fl (80-96); MEAN PLT VOLUME 7.4 fl (7.5-11.1); MONO % 10.4 % (3.8-10.2); NEUT % 52.9 % (42.8-82.8); PLATELET COUNT 219 K/MM3 (134-434); RDW 12.9 % (11.6-15.6); WHITE BLOOD COUNT 6.7 K/mm3 (4.0-10.0)
[2020-03-24 10:41] LABS: EPI CELLS 25 /uL (0-25.1); HYALINE CASTS 2 /uL (0-3.1); URINE APPEARANCE CLEAR; URINE BACTERIA 447 /uL (0-1359); URINE BILIRUBIN NEGATIVE (NEGATIVE); URINE COLOR YELLOW; URINE GLUCOSE (UA) NEGATIVE (NEGATIVE); URINE KETONE NEGATIVE (NEGATIVE); URINE LEUK ESTERASE NEGATIVE (NEGATIVE); URINE NITRITE NEGATIVE (NEGATIVE); URINE PROTEIN NEGATIVE (NEGATIVE); URINE RBC 12 /uL (0-23.9); URINE UROBILINOGEN 0.2 mg/dL (0.2-1.0); URINE WBC 11 /uL (0-25.8)
[2020-03-24 10:49] LABS: POTASSIUM 4.1 mmol/L (3.5-5.1)
[2020-03-24 10:50] LABS: CALCIUM 8.9 mg/dL (8.5-10.1)
[2020-03-24 10:51] LABS: ALBUMIN 3.8 g/dl (3.4-5.0); BLOOD UREA NITROGEN 10.4 mg/dL (7-18)
[2020-03-24 10:54] LABS: CREATININE 0.7 mg/dL (0.55-1.3)
[2020-03-24 10:56] LABS: BILIRUBIN,TOTAL 0.6 mg/dL (0.2-1); TOT PROT 6.8 g/dl (6.4-8.2)
== END 2020-03-24 13:46 | disposition home or self-care (01) ==
LOC: JER 09:07
DX: O26.851 Spotting complicating pregnancy, first trimester (principal)
CPT/HCPCS: 36415; 76817-TC; 80053; 81003; 84702; 85025; 86850; 86900; 86901; 87086; 99284-25

== ENCOUNTER 2020-03-26 11:08 | Emergency (ER) | payer OTHER ==
[2020-03-26 11:13] VITALS: BP 122/68; PULSE 86; TEMP 98.5; BMI 26.5
[2020-03-26] MEDS ORDERED: ACETAMINOPHEN 1000 MG/100 ML VIAL (NON FORMULARY) IVPB ONE (11:53)
[2020-03-26] MEDS ORDERED: ACETAMINOPHEN INJECTION 100 ML IVPB ONE (12:07)
[2020-03-26 12:35] LABS: BASO % 0.2 % (0-2.0); EOS % 1.6 % (0-4.5); HEMOGLOBIN 13.4 GM/dL (10.7-15.3); LYMPH % 21.2 % (8-40); MCH 31.5 pg (25.7-33.7); MCHC 33.5 g/dl (32.0-36.0); MEAN PLT VOLUME 7.3 fl (7.5-11.1); MONO % 7.6 % (3.8-10.2); NEUT % 69.4 % (42.8-82.8); PLATELET COUNT 225 K/MM3 (134-434); RBC 4.26 M/mm3 (3.60-5.2); RDW 12.6 % (11.6-15.6); WHITE BLOOD COUNT 9.7 K/mm3 (4.0-10.0)
[2020-03-26 12:51] LABS: POTASSIUM 4.3 mmol/L (3.5-5.1)
[2020-03-26 12:52] LABS: CALCIUM 9.2 mg/dL (8.5-10.1)
[2020-03-26 12:53] LABS: ALBUMIN 3.8 g/dl (3.4-5.0); BLOOD UREA NITROGEN 9.1 mg/dL (7-18)
[2020-03-26 12:56] LABS: CREATININE 0.7 mg/dL (0.55-1.3)
[2020-03-26 12:58] LABS: BILIRUBIN,TOTAL 0.3 mg/dL (0.2-1); TOT PROT 7.4 g/dl (6.4-8.2)
== END 2020-03-26 14:10 | disposition home or self-care (01) ==
LOC: JER 11:08
PROC: 3E033NZ Introduction of Analgesics, Hypnotics, Sedatives into Peripheral Vein, Percutaneous Approach (ICD-10-PCS; principal; 2020-03-26)
DX: O03.9 Complete or unspecified spontaneous abortion without complication (principal)
CPT/HCPCS: 36415; 76817-TC; 80053; 84702; 85025; 99284-25; J0131

== ENCOUNTER 2020-10-15 09:09 | Emergency (ER) | payer OTHER ==
[2020-10-15 09:18] VITALS: BP 89/57; PULSE 78; TEMP 98.1; BMI 27.4
[2020-10-15] MEDS ORDERED: ACETAMINOPHEN 1000 MG/100 ML VIAL (NON FORMULARY) IVPB ONE (09:31)
[2020-10-15] MEDS ORDERED: SODIUM CHLORIDE 1,000 ML IV STA (09:31)
[2020-10-15] MEDS ORDERED: ACETAMINOPHEN INJECTION 100 ML IVPB ONE (09:47)
[2020-10-15 10:52] LABS: BASO % 0.3 % (0-2.0); HEMATOCRIT 36.5 % (32.4-45.2); HEMOGLOBIN 12.7 GM/dL (10.7-15.3); LYMPH % 18.6 % (8-40); MCH 32.1 pg (25.7-33.7); MCHC 34.9 g/dl (32.0-36.0); MEAN CELL VOLUME 92.1 fl (80-96); MEAN PLT VOLUME 7.3 fl (7.5-11.1); MONO % 7.5 % (3.8-10.2); NEUT % 72.6 % (42.8-82.8); PLATELET COUNT 214 10^3/uL (134-434); RBC 3.96 M/mm3 (3.60-5.2); WHITE BLOOD COUNT 7.8 K/mm3 (4.0-10.0)
[2020-10-15 11:09] LABS: CALCIUM 8.7 mg/dL (8.5-10.1)
[2020-10-15 11:10] LABS: ALBUMIN 3.1 g/dl (3.4-5.0); BLOOD UREA NITROGEN 9.9 mg/dL (7-18)
[2020-10-15 11:13] LABS: CREATININE 0.6 mg/dL (0.55-1.3)
[2020-10-15 11:16] LABS: BILIRUBIN,TOTAL 0.2 mg/dL (0.2-1); TOT PROT 6.5 g/dl (6.4-8.2)
[2020-10-15 12:16] LABS: URINE APPEARANCE CLEAR; URINE BILIRUBIN NEGATIVE (NEGATIVE); URINE COLOR YELLOW; URINE GLUCOSE (UA) NEGATIVE (NEGATIVE); URINE KETONE NEGATIVE (NEGATIVE); URINE LEUK ESTERASE NEGATIVE (NEGATIVE); URINE NITRITE NEGATIVE (NEGATIVE); URINE PROTEIN NEGATIVE (NEGATIVE); URINE UROBILINOGEN 0.2 mg/dL (0.2-1.0)
== END 2020-10-15 12:51 | disposition home or self-care (01) ==
LOC: JER 09:09
PROC: 3E033NZ Introduction of Analgesics, Hypnotics, Sedatives into Peripheral Vein, Percutaneous Approach (ICD-10-PCS; principal; 2020-10-15)
PROC: 3E033GC Introduction of Other Therapeutic Substance into Peripheral Vein, Percutaneous Approach (ICD-10-PCS; 2020-10-15)
DX: O26.892 Other specified pregnancy related conditions, second trimester (principal); K52.9 Noninfective gastroenteritis and colitis, unspecified; Z3A.16 16 weeks gestation of pregnancy
CPT/HCPCS: 36415; 76815-TC; 80053; 81003; 84702; 85025; 87086; 96361; 96374; 99284-25; C9803; J0131; U0003; U0005

== ENCOUNTER 2020-11-17 08:23 | Emergency (ER) | payer OTHER ==
[2020-11-17 09:09] VITALS: BP 106/52; PULSE 100; TEMP 98.4; BMI 31.8
== END 2020-11-17 12:47 | disposition home or self-care (01) ==
LOC: JER 08:23
DX: J06.9 Acute upper respiratory infection, unspecified (principal); R05.1 Acute cough; Z11.52 Encounter for screening for COVID-19
CPT/HCPCS: 87804; 87880; 99283-25; C9803; U0003; U0005

== ENCOUNTER 2021-02-16 15:13 | Emergency (ER) | payer OTHER ==
[2021-02-16 15:37] VITALS: BP 116/60; PULSE 84; TEMP 98; BMI 36.8
[2021-02-16] MEDS ORDERED: ACETAMINOPHEN 1000 MG/100 ML BAG IVPB ONE (17:19)
[2021-02-16] MEDS ORDERED: SODIUM CHLORIDE 0.9% 500 ML INFUS.BAG IV ONE (17:19)
[2021-02-16] MEDS ORDERED: FAMOTIDINE 20 MG/50 ML IVPB 20 MG/50 ML MG IVPB ONE ×2 (17:20→17:32)
[2021-02-16] MEDS ORDERED: ONDANSETRON 4 MG/2 ML VIAL IVPUSH ONE (17:21)
[2021-02-16] MEDS ORDERED: ONDANSETRON 4 MG/2 ML VIAL ONE (17:31)
[2021-02-16] MEDS ORDERED: ACETAMINOPHEN INJECTION 100 ML IVPB ONE (17:31)
[2021-02-16 17:42] LABS: BASO % 0.4 % (0-2.0); EOS % 1.3 % (0-4.5); HEMATOCRIT 35.6 % (32.4-45.2); HEMOGLOBIN 11.7 GM/dL (10.7-15.3); LYMPH % 25.3 % (8-40); MCH 30.7 pg (25.7-33.7); MCHC 32.9 g/dl (32.0-36.0); MEAN CELL VOLUME 93.3 fl (80-96); MEAN PLT VOLUME 7.3 fl (7.5-11.1); MONO % 8.5 % (3.8-10.2); NEUT % 64.5 % (42.8-82.8); PLATELET COUNT 258 10^3/uL (134-434); RBC 3.82 M/mm3 (3.60-5.2); WHITE BLOOD COUNT 10.3 K/mm3 (4.0-10.0)
[2021-02-16 18:02] LABS: ALBUMIN 2.6 g/dl (3.4-5.0); CALCIUM 8.8 mg/dL (8.5-10.1)
[2021-02-16 18:04] LABS: BLOOD UREA NITROGEN 6.6 mg/dL (7-18)
[2021-02-16 18:05] LABS: CREATININE 0.5 mg/dL (0.55-1.3)
[2021-02-16 18:07] LABS: BILIRUBIN,TOTAL 0.2 mg/dL (0.2-1); TOT PROT 6.5 g/dl (6.4-8.2)
[2021-02-16 18:26] LABS: PH,URINE 6.5 (5.0-8.0); URINE APPEARANCE CLEAR; URINE BILIRUBIN NEGATIVE (NEGATIVE); URINE COLOR YELLOW; URINE GLUCOSE (UA) NEGATIVE (NEGATIVE); URINE KETONE 1+ (NEGATIVE); URINE LEUK ESTERASE NEGATIVE (NEGATIVE); URINE NITRITE NEGATIVE (NEGATIVE); URINE PROTEIN NEGATIVE (NEGATIVE); URINE UROBILINOGEN 0.2 mg/dL (0.2-1.0)
[2021-02-16] MEDS ORDERED: MAG HYDROX/AL HYDROX/SIMETH -MYLANTA- ORAL SUSPENSION PO ONE (20:59)
[2021-02-16] MEDS ORDERED: CITRIC ACID/SODIUM CITRATE 30 ML UNIT-DOSE CUP PO ONE (21:31)
== END 2021-02-16 22:55 | disposition home or self-care (01) ==
LOC: JER 15:13
PROC: 3E0333Z Introduction of Anti-inflammatory into Peripheral Vein, Percutaneous Approach (ICD-10-PCS; principal; 2021-02-16)
PROC: 3E033GC Introduction of Other Therapeutic Substance into Peripheral Vein, Percutaneous Approach (ICD-10-PCS; 2021-02-16)
DX: O26.893 Other specified pregnancy related conditions, third trimester (principal); R10.13 Epigastric pain; Z3A.28 28 weeks gestation of pregnancy
CPT/HCPCS: 36415; 76705-TC; 80053; 81003; 83690; 85025; 87086; 87186; 99284-25; C9803; J0131; U0003; U0005

== ENCOUNTER 2021-02-24 16:53 | Emergency (ER) | payer OTHER ==
[2021-02-24 16:58] VITALS: BMI 36.8
[2021-02-24] MEDS ORDERED: SODIUM CHLORIDE 0.9% 500 ML INFUS.BAG IV ONE (17:15)
[2021-02-24] MEDS ORDERED: FAMOTIDINE 20 MG/50 ML IVPB 20 MG/50 ML MG IVPB ONE ×2 (17:22→17:31)
[2021-02-24] MEDS ORDERED: ONDANSETRON 4 MG/2 ML VIAL IVPUSH ONE ×2 (17:22→18:15)
[2021-02-24] MEDS ORDERED: ONDANSETRON 4 MG/2 ML VIAL ONE ×2 (17:30→18:19)
[2021-02-24 17:40] LABS: BASO % 0.2 % (0-2.0); EOS % 0.4 % (0-4.5); HEMATOCRIT 36.1 % (32.4-45.2); HEMOGLOBIN 12.5 GM/dL (10.7-15.3); LYMPH % 31.5 % (8-40); MCH 31.8 pg (25.7-33.7); MCHC 34.7 g/dl (32.0-36.0); MEAN CELL VOLUME 91.6 fl (80-96); MONO % 6.8 % (3.8-10.2); NEUT % 61.1 % (42.8-82.8); PLATELET COUNT 213 10^3/uL (134-434); RBC 3.94 M/mm3 (3.60-5.2); RDW 13.8 % (11.6-15.6); WHITE BLOOD COUNT 7.4 K/mm3 (4.0-10.0)
[2021-02-24 18:01] LABS: ALBUMIN 2.9 g/dl (3.4-5.0); BLOOD UREA NITROGEN 5.6 mg/dL (7-18); CALCIUM 8.7 mg/dL (8.5-10.1)
[2021-02-24 18:04] LABS: CREATININE 0.6 mg/dL (0.55-1.3)
[2021-02-24 18:06] LABS: BILIRUBIN,TOTAL 0.6 mg/dL (0.2-1); TOT PROT 6.7 g/dl (6.4-8.2)
[2021-02-24] MEDS ORDERED: DEXTROSE 5%-NORMAL SALINE 1,000 ML IV ONE (18:16)
[2021-02-24 19:42] LABS: PH,URINE 6.5 (5.0-8.0); URINE APPEARANCE CLEAR; URINE BILIRUBIN NEGATIVE (NEGATIVE); URINE COLOR YELLOW; URINE GLUCOSE (UA) 2+ (NEGATIVE); URINE KETONE 3+ (NEGATIVE); URINE LEUK ESTERASE NEGATIVE (NEGATIVE); URINE NITRITE NEGATIVE (NEGATIVE); URINE PROTEIN NEGATIVE (NEGATIVE)
[2021-02-24 20:51] VITALS: BP 119/74; PULSE 73; TEMP 98.3
== END 2021-02-24 21:50 | disposition home or self-care (01) ==
LOC: JER 16:53
PROC: 3E033GC Introduction of Other Therapeutic Substance into Peripheral Vein, Percutaneous Approach (ICD-10-PCS; principal; 2021-02-24)
DX: O98.513 Other viral diseases complicating pregnancy, third trimester (principal); O21.9 Vomiting of pregnancy, unspecified; Z3A.34 34 weeks gestation of pregnancy
CPT/HCPCS: 36415; 80053; 81003; 85025; 87086; 96361; 96365; 96375; 96376; 99284-25; C9803-CS; U0003; U0005

== ENCOUNTER 2021-04-09 11:20 | Inpatient (IN) | payer OTHER ==
[2021-04-09 12:40] VITALS: BMI 37.0
[2021-04-09 12:42] LABS: HEMATOCRIT 36.8 % (32.4-45.2); HEMOGLOBIN 12.5 GM/dL (10.7-15.3); LYMPH % 24.5 % (8-40); MCH 31.6 pg (25.7-33.7); MCHC 34.1 g/dl (32.0-36.0); MEAN CELL VOLUME 92.8 fl (80-96); MEAN PLT VOLUME 7.4 fl (7.5-11.1); MONO % 5.3 % (3.8-10.2); PLATELET COUNT 229 10^3/uL (134-434); RBC 3.96 M/mm3 (3.60-5.2); RDW 14.5 % (11.6-15.6); WHITE BLOOD COUNT 7.2 K/mm3 (4.0-10.0)
[2021-04-09 12:43] LABS: BASO % 0.2 % (0-2.0)
[2021-04-09] MEDS ORDERED: DINOPROSTONE 10 MG VAGINAL SUPPOSITORY VG ONE (12:45)
[2021-04-09 12:48] LABS: INR 1.01 (0.83-1.09); PROTHROMBIN TIME (PATIENT) 11.6 SEC (9.7-13.0)
[2021-04-09 12:51] LABS: ACTIVATED PTT 29.1 SECONDS (25.2-36.5)
[2021-04-09 13:01] LABS: CALCIUM 8.7 mg/dL (8.5-10.1)
[2021-04-09 13:02] LABS: BLOOD UREA NITROGEN 9.9 mg/dL (7-18)
[2021-04-09 13:05] LABS: CREATININE 0.7 mg/dL (0.55-1.3)
[2021-04-09 13:59] LABS: METHADONE, UR NEGATIVE (NEGATIVE); PHENCYCLIDINE,URINE NEGATIVE (NEGATIVE); URINE BENZODIAZEPINES NEGATIVE (NEGATIVE)
[2021-04-09 14:00] LABS: COCAINE, UR NEGATIVE (NEGATIVE); URINE BARBITURATES NEGATIVE (NEGATIVE)
[2021-04-09 14:11] LABS: OPIATES, URI NEGATIVE (NEGATIVE); URINE AMPHETAMINES NEGATIVE (NEGATIVE)
[2021-04-09] MEDS ORDERED: SODIUM PHOSPHATE/NA BIPHOS 133 ML ENEMA PR ONE (15:12)
[2021-04-09] MEDS ORDERED: ELECTROLYTE-148 SOLN 1,000 ML IV SCH (15:15)
[2021-04-09] MEDS ORDERED: PROMETHAZINE HCL 25 MG/1 ML VIAL IVPUSH ONE ×2 (20:57→23:30)
[2021-04-09] MEDS ORDERED: BUTORPHANOL TARTRATE 2 MG/ML VIAL IVPUSH ONE (20:57)
[2021-04-09] MEDS ORDERED: PROMETHAZINE HCL 25 MG/1 ML VIAL ONE ×2 (21:47→23:24)
[2021-04-09] MEDS ORDERED: BUTORPHANOL TARTRATE 2 MG/ML VIAL ONE (21:47)
[2021-04-09] MEDS ORDERED: OXYTOCIN 30 UNITS in 0.9% NS 30 UNIT/500 ML INFUS.BAG IVPB SCH (23:15)
[2021-04-09] MEDS ORDERED: BUTORPHANOL TARTRATE 1 MG/ML VIAL ONE (23:23)
[2021-04-09] MEDS ORDERED: BUTORPHANOL TARTRATE 1 MG/ML VIAL IVPUSH ONE (23:30)
[2021-04-09] MEDS ORDERED: OXYTOCIN 20 UNITS in 0.9% NS 20 UNIT/1,000 ML INFUS.BAG IV ONE (23:34)
[2021-04-09] MEDS ORDERED: LIDOCAINE HCL 1% PRESERVATIVE FREE - 30ML VIAL ONE (23:34)
[2021-04-10] MEDS ORDERED: BISACODYL 10 MG SUPP.RECT RC PRN (00:49)
[2021-04-10] MEDS ORDERED: METHYLERGONOVINE MALEATE 0.2 MG/1 ML AMP IM PRN (00:49)
[2021-04-10] MEDS ORDERED: WITCH HAZEL 50% (TUCKS) 40 PAD/JAR PAD TP PRN (00:49)
[2021-04-10] MEDS ORDERED: ACETAMINOPHEN 325 MG TABLET (FP) PO PRN (00:49)
[2021-04-10] MEDS ORDERED: oxyCODONE HCL 5 MG TABLET PO PRN (00:49)
[2021-04-10] MEDS ORDERED: BENZOCAINE 28 GM HEMORRHOIDAL OINTMENT TP PRN (00:49)
[2021-04-10] MEDS ORDERED: BENZOCAINE 20% 57 GM BOTTLE TP PRN (00:49)
[2021-04-10] MEDS ORDERED: OXYTOCIN 20 UNITS in 0.9% NS 20 UNIT/1,000 ML INFUS.BAG IV SCH (01:00)
[2021-04-10 02:16] LABS: CORD BASE EXCESS -3.6 mmol/L (0-2); CORD BASE EXCESS -5.6 mmol/L (0-2); CORD HCO3 23.9 mmHg (20-29); CORD PCO2 62.2 mmHg (30-78); CORD pH 7.203 (7.14-7.44); CORD pH 7.307 (7.14-7.44)
[2021-04-10] MEDS: FERROUS SO4 325 MG TABLET (FP) PO SCH ×2 (07:53→16:40)
[2021-04-10] MEDS: IBUPROFEN 600 MG TABLET (FP) PO PRN ×2 (07:53→16:40)
[2021-04-10] MEDS: PRENATAL VITAMINS W/ FOLIC ACID TABLET (FP) PO SCH (10:55)
[2021-04-11 06:59] LABS: BASO % 0.4 % (0-2.0); HEMATOCRIT 33.5 % (32.4-45.2); HEMOGLOBIN 11.3 GM/dL (10.7-15.3); LYMPH % 34.4 % (8-40); MCH 31.6 pg (25.7-33.7); MCHC 33.6 g/dl (32.0-36.0); MEAN PLT VOLUME 7.5 fl (7.5-11.1); MONO % 8.2 % (3.8-10.2); PLATELET COUNT 206 10^3/uL (134-434); RBC 3.56 M/mm3 (3.60-5.2); RDW 14.6 % (11.6-15.6); WHITE BLOOD COUNT 7.9 K/mm3 (4.0-10.0)
[2021-04-11] MEDS: IBUPROFEN 600 MG TABLET (FP) PO PRN (08:17)
[2021-04-11] MEDS: FERROUS SO4 325 MG TABLET (FP) PO SCH ×2 (08:18→17:30)
[2021-04-11] MEDS: PRENATAL VITAMINS W/ FOLIC ACID TABLET (FP) PO SCH (09:56)
[2021-04-11 21:34] VITALS: TEMP 97.6
[2021-04-11] MEDS ORDERED: SENNOSIDES/DOCUSATE COMBO (SENNA PLUS) TABLET (UD) PO PRN (22:00)
[2021-04-12] MEDS: FERROUS SO4 325 MG TABLET (FP) PO SCH (07:26)
[2021-04-12] MEDS: IBUPROFEN 600 MG TABLET (FP) PO PRN (07:26)
[2021-04-12 09:57] VITALS: BP 130/80; PULSE 89
[2021-04-12] MEDS: PRENATAL VITAMINS W/ FOLIC ACID TABLET (FP) PO SCH (10:07)
== END 2021-04-12 11:45 | disposition home or self-care (01) | DRG 560 ==
LOC: JLDR 11:20 → J3W 04-10 02:09
PROVIDERS: ADMIT Obstetrics & Gynecology; ATTEND Obstetrics & Gynecology
PROC: 3E0P7VZ Introduction of Hormone into Female Reproductive, Via Natural or Artificial Opening (ICD-10-PCS; 2021-04-09)
PROC: 10E0XZZ Delivery of Products of Conception, External Approach (ICD-10-PCS; principal; 2021-04-10)
DX: O48.0 Post-term pregnancy (principal); Z3A.40 40 weeks gestation of pregnancy; Z37.0 Single live birth; O99.214 Obesity complicating childbirth; E66.9 Obesity, unspecified; O99.344 Other mental disorders complicating childbirth; F41.9 Anxiety disorder, unspecified
CPT/HCPCS: 36415; 36600; 59409; 80048; 80307; 82803; 85025; 85610; 85730; 86780; 86850; 86900; 86901; C9803; U0003; U0005

== ENCOUNTER 2022-07-02 16:52 | Emergency (ER) | payer OTHER ==
[2022-07-02 17:14] VITALS: BP 104/63; PULSE 82; RESP 20; TEMP 98.2; BMI 29.5
[2022-07-02] MEDS ORDERED: KETOROLAC TROMETHAMINE 30 MG/1 ML VIAL IVPUSH ONE (17:47)
[2022-07-02] MEDS ORDERED: SODIUM CHLORIDE 0.9% 500 ML INFUS.BAG IV ONE (17:47)
[2022-07-02] MEDS ORDERED: KETOROLAC TROMETHAMINE 30 MG/1 ML VIAL ONE (18:41)
[2022-07-02 19:42] LABS: BASO % 0.3 % (0-2.0); HEMATOCRIT 38.5 % (32.4-45.2); HEMOGLOBIN 13.1 GM/dL (10.7-15.3); LYMPH % 23.8 % (8-40); MCH 31.2 pg (25.7-33.7); MCHC 33.9 g/dl (32.0-36.0); MEAN CELL VOLUME 92.2 fl (80-96); MEAN PLT VOLUME 7.5 fl (7.5-11.1); MONO % 6.8 % (3.8-10.2); NEUT % 67.1 % (42.8-82.8); PLATELET COUNT 232 10^3/uL (134-434); RBC 4.18 M/mm3 (3.60-5.2); RDW 14.2 % (11.6-15.6); WHITE BLOOD COUNT 9.9 K/mm3 (4.0-10.0)
[2022-07-02 20:00] LABS: POTASSIUM 4.2 mmol/L (3.5-5.1)
[2022-07-02 20:06] LABS: BLOOD UREA NITROGEN 11.5 mg/dL (7-18); CALCIUM 8.8 mg/dL (8.5-10.1)
[2022-07-02 20:07] LABS: ALBUMIN 3.5 g/dl (3.4-5.0)
[2022-07-02 20:08] LABS: CREATININE 0.7 mg/dL (0.55-1.3)
[2022-07-02 20:09] LABS: TOT PROT 6.6 g/dl (6.4-8.2)
[2022-07-02 20:10] LABS: BILIRUBIN,TOTAL 0.2 mg/dL (0.2-1)
== END 2022-07-02 20:28 | disposition home or self-care (01) ==
LOC: JER 16:52
PROC: 3E033GC Introduction of Other Therapeutic Substance into Peripheral Vein, Percutaneous Approach (ICD-10-PCS; principal; 2022-07-02)
DX: R07.2 Precordial pain (principal); R00.2 Palpitations; R19.7 Diarrhea, unspecified; R22.40 Localized swelling, mass and lump, unspecified lower limb; R22.30 Localized swelling, mass and lump, unspecified upper limb
CPT/HCPCS: 36415; 71046-TC-FY; 80053; 83690; 84484; 84703; 85025; 93005; 93010; 99284-25

== ENCOUNTER 2022-11-30 15:06 | Emergency (ER) | payer OTHER ==
[2022-11-30 15:11] VITALS: BP 109/72; PULSE 79; RESP 20; TEMP 98.4; BMI 27.4
== END 2022-11-30 16:56 | disposition home or self-care (01) ==
LOC: JERFT 15:06
DX: S90.02XA Contusion of left ankle, initial encounter (principal); M25.572 Pain in left ankle and joints of left foot; W22.8XXA Striking against or struck by other objects, initial encounter; Y93.01 Activity, walking, marching and hiking; Y92.039 Unspecified place in apartment as the place of occurrence of the external cause
CPT/HCPCS: 73610-TC-LT-FY; 73630-TC-LT; 99283-25

== ENCOUNTER 2023-06-01 22:18 | Emergency (ER) | payer SELFPAY ==
[2023-06-01 22:28] VITALS: BMI 31.1
[2023-06-02] MEDS ORDERED: METHOCARBAMOL 500 MG TABLET ONE (00:44)
[2023-06-02] MEDS ORDERED: LIDOCAINE 4% PATCH TP ONE (00:45)
[2023-06-02] MEDS ORDERED: KETOROLAC TROMETHAMINE 30 MG/1 ML VIAL ONE (00:45)
[2023-06-02] MEDS ORDERED: ACETAMINOPHEN 325 MG TABLET (FP) ONE (00:45)
[2023-06-02] MEDS: ACETAMINOPHEN 325 MG TABLET (FP) PO ONE (00:56)
[2023-06-02] MEDS: KETOROLAC TROMETHAMINE 30 MG/1 ML VIAL IM ONE (00:56)
[2023-06-02] MEDS: METHOCARBAMOL 500 MG TABLET PO ONE (00:56)
[2023-06-02] MEDS: LIDOCAINE 4% PATCH TP ONE (00:56)
[2023-06-02 01:07] VITALS: RESP 16; TEMP 98.1
[2023-06-02] MEDS ORDERED: diazePAM 5 MG TABLET ONE (01:59)
[2023-06-02] MEDS: diazePAM 5 MG TABLET PO ONE (02:03)
[2023-06-02] MEDS ORDERED: LIDOCAINE PATCH REMOVAL MC SCH (22:00)
== END 2023-06-02 05:19 | disposition home or self-care (01) ==
LOC: JERFT 22:18 → JER 22:18
PROC: 3E0233Z Introduction of Anti-inflammatory into Muscle, Percutaneous Approach (ICD-10-PCS; principal; 2023-06-02)
DX: M54.6 Pain in thoracic spine (principal); M54.2 Cervicalgia; M79.10 Myalgia, unspecified site
CPT/HCPCS: 71046-TC-FY; 93005; 93010; 99284-25

== ENCOUNTER 2023-07-12 16:46 | Emergency (ER) | payer SELFPAY ==
[2023-07-12 17:01] VITALS: BP 115/68; PULSE 93; RESP 18; TEMP 98.4; BMI 28.3
[2023-07-12] MEDS ORDERED: KETOROLAC TROMETHAMINE 30 MG/1 ML VIAL ONE (18:01)
[2023-07-12] MEDS: KETOROLAC TROMETHAMINE 30 MG/1 ML VIAL IM ONE (18:05)
== END 2023-07-12 19:57 | disposition home or self-care (01) ==
LOC: JER 16:46 → JERFT 16:46
PROC: 3E0133Z Introduction of Anti-inflammatory into Subcutaneous Tissue, Percutaneous Approach (ICD-10-PCS; principal; 2023-07-12)
DX: S63.92XA Sprain of unspecified part of left wrist and hand, initial encounter (principal); W19.XXXA Unspecified fall, initial encounter; Y93.02 Activity, running
CPT/HCPCS: 73110-TC-LT-FY; 73110-TC-RT-FY; 84703; 99284-25